=== PATIENT | female | born 1970 | race Caucasian/White ===

== ENCOUNTER 2018-08-19 10:38 | Emergency (ER) | payer OTHER ==
[2018-08-19] MEDS ORDERED: Sodium Chloride 0.9% 10 ML Syringe FLUSH PRN (11:04)
--- NOTE | 2018-08-19 11:04 | EDM.PDOC ---
ED HPI GENERAL MEDICAL PROBLEM - General Chief Complaint: General Stated Complaint: fatigue, poor intake, bodyaches Time Seen by Provider: 08/19/18 10:50 Source of Information: Reports: Patient. Denies: Old Records (No [facility] records available) History Limitations: Reports: No Limitations - History of Present Illness INITIAL COMMENTS - FREE TEXT/NARRATIVE: The patient was brought to the emergency room via private automobile by her cousin for evaluation of a one-week history of progressive possible fever, chills, fatigue, and anorexia with possible influenza A exposure from her cousin 's daughter prior to onset of the above symptoms. The patient did receive her influenza booster this season with no history of other known exposure to infection, including strep, mononucleosis, etc.. Her symptoms today are similar to an influenza infection about 8 years ago. She has not measured her temperature to this point and has not taken any medications for her above symptoms, including recent antipyretic medications during the last 4-6 hours. No recent history of abdominal pain, heartburn, emesis, diarrhea, melena, gross hematochezia, or any food intolerance, including fatty foods, etc., including a normal bowel movement earlier this morning. The patient does complain of some nonspecific nausea. She has had about 2 bowel movements on a daily basis during the last few days with increasing symptoms during the last 4 days. She has a one -year history of a possible left upper quadrant abdominal abscess with recurrence about 2 weeks ago and purulent drainage about one week ago when she squeezed this lesion. She denies any gross hematuria, colic, or other UTI symptoms. She has had a somewhat yellowish productive cough and possible occasional hemoptysis during the last few days with no history of dyspnea, wheezing, etc.. She also complains of bilateral frontal headaches and nonspecific nasal drainage. The patient denies any chest pain/pressure, heart flutter, dizziness, orthostasis, orthopnea, diaphoresis, paresthesias, recent decreased exercise tolerance, or any other anginal-type symptoms. Onset: Gradual, Other Duration: Week(s):, Constant, Getting Worse Location: Reports: Head, Abdomen, Generalized Quality: Reports: Ache, Same as Previous Episode Severity: Moderate Improves with: Reports: None Worsens with: Reports: None Context: Reports: Sick Contact (As above). Denies: Trauma Associated Symptoms: Reports: Cough, cough w sputum, Fever/Chills, Headaches, Loss of Appetite, Nausea/Vomiting (No emesis), Rash (Abscess as above), Weakness (Generalized fatigue). Denies: Confusion, Chest Pain, Diaphoresis, Malaise, Seizure, Shortness of Breath, Syncope Treatments POWER OPERATOR: Reports: Other (see below) (None) Headache Pain Score (Numeric/FACES): 5 Left Epigastric Pain Score (Numeric/FACES): 8 Generalized Pain Score (Numeric/FACES): 4 - Related Data Allergies Allergy/AdvReac Type Severity Reaction Status Date / Time No Known Allergies Allergy Verified 08/19/18 10:40 Home Meds: Home Meds Amoxicillin/Potassium Clav [Augmentin 875-125 Tablet] 1 each PO BIDMEALS #20 tablet 08/19/18 [Rx] Past Medical History HEENT History: Reports: Allergic Rhinitis. Denies: Cataract, Glaucoma, Hard of Hearing, Impaired Vision, Macular Degeneration, Otitis Media, Retinal Detachment Cardiovascular History: Reports: Hypertension, Other (See Below). Denies: Afib , Aneurysm, Arrhythmia, Blood Clots/VTE/DVT, CAD, Heart Failure, Heart Murmur, High Cholesterol, AK, PTCA, PVD, Syncope Other Cardiovascular History: Hypertension not currently being treated. Patient does not know her cholesterol status. Varicose veins. Respiratory History: Reports: Asthma, Intubation, Previous, Other (See Below). Denies: Bronchitis, Recurrent, COPD, Intubation, Difficult, PE, Pneumonia, Recurrent, Pneumothorax, Sleep Apnea, TB Other Respiratory History: Exercise-induced asthma. Gastrointestinal History: Reports: Cholelithiasis, Chronic Constipation, Chronic Diarrhea, Colon Polyp, Gastritis, GERD, Irritable Bowel Syndrome, PUD, Other (See Below). Denies: Bowel Obstruction, Celiac Disease, Diverticulosis, Fecal Incontinence, GI Bleed, Hepatitis, Hiatal Hernia, Inflammatory Bowel Disease, Jaundice, Pancreatitis Genitourinary History: Reports: Renal Calculus, Urinary Incontinence, Other ( See Below). Denies: Acute Renal Failure, Chronic Renal Insuffiency, Retention, Urinary, STD, UTI, Recurrent Other Genitourinary History: Recurrent urolithiasis mostly on the right side with spontaneous passage initially in the . Bladder prolapse with recurrent UTIs and unsuccessful surgery as below. KST OPERATOR History: Reports: Endometriosis, , Spontaneous . Denies : Dysfunctional Uterine Bleeding, Fibroids, Polycystic Ovaries : 3 Para: 2 LMP (Approximate): Other (See Below) Other KST OPERATOR History: Surgical menopause as below secondary to endometriosis. Elective SAB. Musculoskeletal History: Reports: Arthritis, Back Pain, Chronic, Neck Pain, Chronic, Osteoarthritis. Denies: Fracture, Gout, RA, SLE Neurological History: Reports: Concussion, Headaches, Chronic, Head Trauma, Migraines, Neuropathy, Peripheral, Other (See Below). Denies: Cerebral Aneurysms, CVA, MS, Parkinson's, Seizure, TIA, Vertigo Other Neuro History: Concussion at age 3. Psychiatric History: Reports: Anxiety, Depression. Denies: Abuse, Victim of, ADD, ADHD, Addiction, Psych Hospitalization(s), PTSD, Suicide Attempt, Suicidal Ideation Endocrine/Metabolic History: Reports: None. Denies: Diabetes, Gestational, Diabetes, Type I, Diabetes, Type II, Diabetes Mellitus, Type 3c, Hypothyroidism , IDDM, Obesity/BMI 30+ Hematologic History: Reports: None. Denies: Anemia, Blood Transfusion(s), Iron Deficiency Immunologic History: Reports: None. Denies: AIDS, HIV, SLE Oncologic (Cancer) History: Reports: Cervix, Other (See Below). Denies: Basal Cell Carcinoma, Breast, Colon, Hodgkin's Lymphoma, Leukemia, Lymphoma, Malignant Melanoma, Non-Hodgkin's Lymphoma, Ovarian, Squamous Cell Carcinoma Other Oncologic History: Pre-cancerous cervical lesion in 2009 with surgery as below. Dermatologic History: Reports: None. Denies: Eczema, Psoriasis - Infectious Disease History Infectious Disease History: Reports: Chicken Pox, Influenza. Denies: C- Difficile, Measles, Meningitis, Mononucleosis, MRSA, Mumps, Pertussis (Whooping Cough), Rheumatic Fever, Rubella, Scarlet Fever, Shingles, TB, VRE - Past Surgical History Head Surgeries/Procedures: Reports: None HEENT Surgical History: Reports: None. Denies: Adenoidectomy, Cataract Surgery , Eye Surgery, Laser Surgery, LASIK, Myringotomy w Tube(s), Naso-Sinus Surgery, Oral Surgery, Tonsillectomy Cardiovascular Surgical History: Reports: None. Denies: Varicose Respiratory Surgical History: Reports: None. Denies: Thoracentesis GI Surgical History: Reports: Cholecystectomy, Colonoscopy, EGD, Other (See Below). Denies: Appendectomy, Hernia, Abdominal, Hernia, Inguinal, Hernia Repair/Other, Polypectomy Other GI Surgeries/Procedures: EGD in about 1994. Initial colonoscopy in 1985 with last colonoscopy in 1994. Female Surgical History: Reports: D&C, Dilitation & Evacuation, Hysterectomy , LEEP, Other (See Below). Denies: Breast Biopsy, Section, Salpingo- Oophorectomy, Tubal Ligation Other Female Surgeries/Procedures: Hysterectomy in 2002 secondary to endometriosis. LEEP procedure with concomitant bladder suspension in 2009. D&C for elective SAB in 2000. Endocrine Surgical History: Reports: None. Denies: Thyroid Biopsy Neurological Surgical History: Reports: None. Denies: C-Spine, Discectomy, Laminectomy, Lumbar Spine, Sacral Spine, Spinal Fusion, Thoracic Spine, Vertebroplasty Musculoskeletal Surgical History: Reports: None. Denies: Arthroscopic Knee, Arthroscopic Procedure, Carpal Tunnel, Ganglion Cyst, ORIF, Shoulder Surgery Oncologic Surgical History: Reports: None. Denies: Biopsy of Breast Dermatological Surgical History: Reports: None Social & Family History - Tobacco Use Smoking Status *Q: Former Smoker Tobacco Use Within Last Twelve Months: No Years of Tobacco use: 26 Packs/Tins Daily: 1 Packs/Tins Daily Comment: Smoked between ages 12 and 38. Used Tobacco, but Quit: No Smoking Cessation Information Provided To Patient: No Second Hand Smoke Exposure: No Second Hand Smoke Education Provided: No - Caffeine Use Caffeine Use: Reports: Coffee (2 Cups per day), Energy Drinks (2 times per week) . Denies: Soda, Tea - Alcohol Use Alcohol Use History: No Days Per Week of Alcohol Use: 0 Number of Drinks Per Day: 2 Number of Drinks Per Day Comment: DWI in 2003. No previous history of alcohol abuse or treatment. Usually beer every couple of months. 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 ED EXAM, GENERAL - Physical Exam Exam: See Below Exam Limited By: No Limitations General Appearance: Alert, WD/WN, No Apparent Distress, Anxious (Mild) Eye Exam: Bilateral Eye: EOMI, Normal Inspection (No nystagmus), PERRL Ears: Normal External Exam, Normal Canal, Hearing Grossly Normal, Normal TMs Nose: Normal Mucosa, No Blood, Clear Rhinorrhea (Mild bilateral). No: Nasal Deformity, Nasal Swelling, Nasal Flaring Throat/Mouth: Normal Lips, Normal Teeth, Normal Gums, Normal Voice, No Airway Compromise, Other (1 cm in diameter area of +1 erythema superior to the mid left upper lip with no blister formation, lymphangitis, etc.). No: Normal Oropharynx (+1 erythema in the posterior pharynx and tonsils with no pinpoint white exudates or peritonsillar abscess), Dysphagia, Inflammation, Perioral Cyanosis Head: Atraumatic, Normocephalic. No: Facial Swelling, Facial Tenderness, Sinus Tenderness Neck: Normal Inspection, Supple, Non-Tender, Full Range of Motion. No: Carotid Bruit, Lymphadenopathy (L), Lymphadenopathy (R), Thyromegaly Respiratory/Chest: No Respiratory Distress, Lungs Clear, Normal Breath Sounds, No Accessory Muscle Use, Chest Non-Tender. No: Pleural Rub, Retractions Cardiovascular: Normal Peripheral Pulses, Regular Rate, Rhythm, No Edema, No Gallop, No JVD, No Murmur, No Rub. No: Tachycardia (Resolved at time of exam), Gallop/S3, Gallop/S4, Friction Rub Peripheral Pulses: 2+: Radial (L), Radial (R), Dorsalis Pedis (L), Dorsalis Pedis (R) GI/Abdominal: Normal Bowel Sounds, Soft, No Organomegaly, No Distention, No Abnormal Bruit, Tender (Mild to moderate palpation pain over the 4 cm left upper quadrant abdominal mass with no acute drainage at this time and only minimal trace erythema. No lymphangitis, etc.), Mass (As above). No: No Mass ( As below), Distended, Guarding, Rigid, Rebound (Female) Exam: Deferred Rectal (Female) Exam: Deferred Back Exam: Normal Inspection, Full Range of Motion. No: CVA Tenderness (L), CVA Tenderness (R), Muscle Spasm Extremities: Normal Range of Motion, Non-Tender, No Pedal Edema, Normal Capillary Refill, Other (4 centimeter in diameter mild ecchymosis over the lateral proximal aspect of the right radius with no known recent injury, deformity, significant tenderness, etc.). No: Bartolome's Sign Neurological: Alert, Oriented, CN II-XII Intact, Normal Cognition, Normal Gait, Normal Reflexes (Negative Babinski's. Negative meningeal signs.), No Motor/ Sensory Deficits Psychiatric: Anxious (Mild), Depressed Mood (Borderline) Skin Exam: Ecchymosis (As above), Rash (As above), Wound/Incision (As above) ED I&D PROCEDURES - I&D Site: Abdomenleft upper quadrant Skin prep: Chlorhexidine (Hibiciens) Local anesthesia - Lidocaine (Xylocaine): 1% Plain Local Anesthetic Volume: 5cc Area Incised With: 11 Blade Drainage: Purulent (Mild), Small Amount, Other (Mild to moderate sebaceous discharge with large abscess capsule noted) Probed to Break Up Loculations: Yes Packed With: None Sterile Dressinx4(s) Complications: No Progress/Comments: Wound specimen collected for culture and sensitivity Course - Vital Signs Last Recorded V/S: Last Vital Signs Temp 36.7 C 08/19/18 11:15 Pulse 67 08/19/18 14:30 Resp 16 08/19/18 14:00 BP 128/76 08/19/18 14:30 Pulse Ox 99 08/19/18 14:00 Vital Signs - 24 hr 08/19/18 08/19/18 08/19/18 10:40 10:54 11:15 Temperature [ 37.1 C 36.7 C Oral] Pulse, 104 H 76 81 Peripheral [ Left Pulse Oximetry] Respiratory 20 14 16 Rate Blood Pressure 140/91 H 148/97 H 140/91 H [Right Upper Arm] O2 Sat by Pulse 99 99 100 Oximetry 08/19/18 08/19/18 08/19/18 11:25 12:15 12:45 Temperature [ Oral] Pulse, 63 69 78 Peripheral [ Left Pulse Oximetry] Respiratory 16 16 16 Rate Blood Pressure 133/94 H 155/88 H 140/89 [Right Upper Arm] O2 Sat by Pulse 99 99 99 Oximetry 08/19/18 08/19/18 14:00 14:30 Temperature [ Oral] Pulse, 66 67 Peripheral [ Left Pulse Oximetry] Respiratory 16 Rate Blood Pressure 137/78 128/76 [Right Upper Arm] O2 Sat by Pulse 99 Oximetry - Orders/Labs/Meds Orders: Active Orders 24 hr Category Date Time Status Peripheral IV Care [RC] . DIRECTED Care 08/19/18 11:04 Active Nothing Per Oral Diet [DIET] Diet 08/19/18 Breakfast Active Abdomen Series w Chest 1V [CR] Stat Exams 08/19/18 11:04 Taken CULTURE BLOOD [BC] Stat Lab 08/19/18 11:15 Received CULTURE BLOOD [BC] Stat Lab 08/19/18 11:20 Received CULTURE STREP A CONFIRMATION [RM] Stat Lab 08/19/18 11:10 Results CULTURE WOUND + SMEAR [RM] Stat Lab 08/19/18 13:25 Results OCCULT BLOOD DIAGNOSTIC [OP] Stat Lab 08/19/18 11:04 Ordered STREP SCRN A RAPID W CULT CONF [RM] Stat Lab 08/19/18 11:10 Results Sodium Chloride 0.9% [Saline Flush] Med 08/19/18 11:04 Active 10 ml FLUSH ASDIRECTED PRN Blood Culture x2 Reflex Set [OM.PC] Urgent Oth 08/19/18 11:04 Ordered Obtain Past Medical Record [OM.PC] Urgent Oth 08/19/18 11:04 Active Peripheral IV Insertion Adult [OM.PC] Stat Oth 08/19/18 11:04 Ordered Resuscitation Status Stat Resus Stat 08/19/18 11:04 Ordered Medication Orders Sodium Chloride (Saline Flush) 10 ml FLUSH ASDIRECTED PRN PRN Reason: Keep Vein Open Labs: Laboratory Tests 08/19/18 08/19/18 08/19/18 Range/Units 11:15 11:15 11:15 WBC 5.9 (4.0-10.2) K/uL RBC 5.07 (3.77-5.09) M/uL Hgb 15.7 H (11.7-15.5) g/dL Hct 45.8 (34.0-46.0) % MCV 90.3 (84.0-98.0) fL MCH 31.0 (28.2-33.3) pg MCHC 34.3 (31.7-36.0) g/dL RDW 13.3 (11.2-14.1) % Plt Count 268 (150-350) K/uL Neut % (Auto) 71.9 (45.0-80.0) % Lymph % (Auto) 16.7 (10.0-50.0) % [place] % (Auto) 10.2 (2.0-14.0) % Eos % (Auto) 0.9 (0.0-5.0) % Baso % (Auto) 0.3 (0.0-2.0) % Neut # (Auto) 4.22 (1.40-7.00) K/uL Lymph # (Auto) 0.98 (0.50-3.50) K/uL [place] # (Auto) 0.60 (0.00-1.00) K/uL Eos # (Auto) 0.05 (0.00-0.50) K/uL Baso # (Auto) 0.02 (0.00-0.20) K/uL PT 10.5 (9.5-12.0) SEC INR 1.0 APTT 27.5 (21.0-31.3) SEC Sodium (136-145) mmol/L Potassium (3.5-5.1) mmol/L Chloride (98-107) mmol/L Carbon Dioxide (21.0-32.0) mmol/L BUN (7-18) mg/dL Creatinine (0.51-1.17) mg/dL Est Cr Clr Drug Dosing mL/min Estimated GFR (MDRD) mL/min Glucose (74-106) mg/dL Lactic Acid (0.4-2.0) mmol/L Uric Acid (2.6-7.2) mg/dL Calcium (8.5-10.1) mg/dL Magnesium (1.8-2.4) mg/dL Total Bilirubin (0.2-1.0) mg/dL AST (15-37) U/L ALT (12-78) U/L Alkaline Phosphatase (46-116) IU/L Total Protein (6.4-8.2) g/dL Albumin (3.4-5.0) g/dL Amylase 33 (25-115) U/L Lipase (73-393) U/L TSH, Ultra Sensitive (0.358-3.740) mIU/mL 08/19/18 08/19/18 08/19/18 Range/Units 11:15 11:15 11:15 WBC (4.0-10.2) K/uL RBC (3.77-5.09) M/uL Hgb (11.7-15.5) g/dL Hct (34.0-46.0) % MCV (84.0-98.0) fL MCH (28.2-33.3) pg MCHC (31.7-36.0) g/dL RDW (11.2-14.1) % Plt Count (150-350) K/uL Neut % (Auto) (45.0-80.0) % Lymph % (Auto) (10.0-50.0) % [place] % (Auto) (2.0-14.0) % Eos % (Auto) (0.0-5.0) % Baso % (Auto) (0.0-2.0) % Neut # (Auto) (1.40-7.00) K/uL Lymph # (Auto) (0.50-3.50) K/uL [place] # (Auto) (0.00-1.00) K/uL Eos # (Auto) (0.00-0.50) K/uL Baso # (Auto) (0.00-0.20) K/uL PT (9.5-12.0) SEC INR APTT (21.0-31.3) SEC Sodium 136 (136-145) mmol/L Potassium 4.1 (3.5-5.1) mmol/L Chloride 102 (98-107) mmol/L Carbon Dioxide 25.2 (21.0-32.0) mmol/L BUN 15 (7-18) mg/dL Creatinine 0.73 (0.51-1.17) mg/dL Est Cr Clr Drug Dosing 86.31 mL/min Estimated GFR (MDRD) > 60 mL/min Glucose 103 (74-106) mg/dL Lactic Acid 1.5 (0.4-2.0) mmol/L Uric Acid 4.5 (2.6-7.2) mg/dL Calcium 9.5 (8.5-10.1) mg/dL Magnesium 2.0 (1.8-2.4) mg/dL Total Bilirubin 0.4 (0.2-1.0) mg/dL AST 19 (15-37) U/L ALT 24 (12-78) U/L Alkaline Phosphatase 86 (46-116) IU/L Total Protein 7.9 (6.4-8.2) g/dL Albumin 3.8 (3.4-5.0) g/dL Amylase (25-115) U/L Lipase 114 (73-393) U/L TSH, Ultra Sensitive 1.566 (0.358-3.740) mIU/mL Blood Cultures 2 were collected Specimenfrom I&D site for Gram stain, culture, and sensitivity Microbiology 08/19/18 13:25 Gram Stain - Final Abdomen - Abscess 08/19/18 11:10 Group A Streptococcus Rapid Screen - Final Throat NEGATIVE STREP A SCREEN 08/19/18 11:10 Influenza Type A Antigen Screen - Final Nasal, Left NEGATIVE INFLUENZA A VIRUS AG Influenza Type B Antigen Screen - Final NEGATIVE INFLUENZA B VIRUS AG Note no significant WBCs or bacteria seen in Gram stain. Meds: Medications Generic Name Dose Route Start Last Admin Trade Name Freq PRN Reason Stop Dose Admin Sodium Chloride 10 ml 08/19/18 11:04 Saline Flush FLUSH ASDIRECTED PRN Keep Vein Open Discontinued Medications Generic Name Dose Route Start Last Admin Trade Name Freq PRN Reason Stop Dose Admin Famotidine 40 mg 08/19/18 11:04 08/19/18 11:21 Pepcid IVPUSH 08/19/18 11:05 40 mg ONETIME ONE Administration Lactated Ringer's 1,000 mls @ 999 mls/hr 08/19/18 11:04 08/19/18 11:45 Ringers, Lactated IV 08/19/18 12:04 999 mls/hr .BOLUS ONE Administration Lidocaine HCl 5 ml 08/19/18 11:13 08/19/18 13:00 Xylocaine-Mpf 1% INJECT 08/19/18 11:14 5 ml ONETIME ONE Administration Neomycin/Polymyxin/Bacitracin 1 each 08/19/18 13:23 08/19/18 14:03 Triple Antibiotic Oint TOP 08/19/18 13:24 1 each ONETIME ONE Administration Ondansetron HCl 4 mg 08/19/18 11:04 08/19/18 11:21 Zofran IVPUSH 08/19/18 11:05 4 mg ONETIME ONE Administration Pantoprazole Sodium 40 mg 08/19/18 11:04 08/19/18 11:21 Protonix Iv IVPUSH 08/19/18 11:05 40 mg ONETIME ONE Administration - Radiology Interpretation Free Text/Narrative:: Acute abdominal x-ray shows evidence of moderate pulmonary obstructive disease with no pulmonary infiltrates, cardiomegaly, CHF, or pneumothorax. Surgical clip noted in the right upper quadrant consistent with cholecystectomy. Cannot rule out possible right renal pelvic nephrolithiasis. Moderate stool with no fluid levels, ileus, obstruction, or free air. Departure - Departure Time of Disposition: 14:45 Disposition: Home, Self-Care 01 Condition: Good Clinical Impression: Cellulitis, Sebaceous cyst, Hypertension, Viral gastroenteritis, Mixed anxiety depressive disorder, Osteoarthritis - Discharge Information *PRESCRIPTION DRUG MONITORING PROGRAM REVIEWED*: Not Applicable *COPY OF PRESCRIPTION DRUG MONITORING REPORT IN PATIENT JAS: Not Applicable Prescriptions: Amoxicillin/Potassium Clav [Augmentin 875-125 Tablet] 1 each PO BIDMEALS #20 tablet Instructions: Viral Gastroenteritis, Adult, [id number], Epidermal Cyst, Easy- to-Read, Cellulitis, Adult, [id number] Referrals: PCP,Unknown [Ordering Only Provider] - Forms: ED Department Discharge, ED Return to Work/School Form Additional Instructions: 1. Follow-up at the [facility] in 3-4 days for reevaluation and recommended excision of your sebaceous cyst on your abdomen. 2. Tylenol 650 mg by mouth every 4 hours and/or OTC ibuprofen 2-3 tabs by mouth every 6 hours with food as directed./needed. You may stagger these medications for 48-72 hours only, which essentially means that you are receiving a pain medication about every 2 hours. 3. Antibacterial soap wash/soak with subsequent antibacterial dressing such as Neosporin, etc. as directed 2 times per day until the wound site completely heals. Keep the area clean and dry with activity restrictions as discussed. Never use hydroperoxide for wound care. 4. Work excuse- See Form 5. [place] diet including encouragement of oral fluids such as sports drinks, etc. for 24-48 hours as directed. Advance to regular diet as tolerated thereafter. 6. Immediately after this visit verify that your cellular telephone's voicemail has been activated and is empty. Also verify that your home telephone 's answering machine is operating properly and has space to receive messages. Note that it is sometimes necessary for us to be able to contact you at a later date to discuss your medical care. 7. Please remember that we are ALWAYS here for you and want to answer any questions you may have. Feel free to call the hospital any time and we call you back ARTHUR. - Problem List & Annotations (1) Cellulitis SNOMED Code(s): 029739463 Code(s): L03.90 - CELLULITIS, UNSPECIFIED Status: Acute Priority: High Current Visit: Yes Onset Date: ~08/19/18 Annotation/Comment:: Mild cellulitis from sebaceous cyst in the abdominal region. Wound specimen collected as above. Initiate Augmentin therapy. Work excuse provided. Wound care discussed. Qualifiers: Site of cellulitis: trunk Site of cellulitis of trunk: abdominal wall Qualified Code(s): L03.311 - Cellulitis of abdominal wall (2) Hypertension SNOMED Code(s): 29167441 Code(s): I10 - ESSENTIAL (PRIMARY) HYPERTENSION Status: Chronic Priority : Medium Current Visit: Yes Annotation/Comment:: Blood pressure somewhat elevated in the emergency room. No current medical therapy. Continue to observe closely by her new regular provider with the patient just moving to the area. Consider update of her yearly health exam in the near future, including lipid panel, etc. Qualifiers: Hypertension type: essential hypertension Qualified Code(s): I10 - Essential (primary) hypertension (3) Mixed anxiety depressive disorder SNOMED Code(s): 209253391 Code(s): F41.8 - OTHER SPECIFIED ANXIETY DISORDERS Status: Chronic Priority: Medium Current Visit: Yes Annotation/Comment:: Mild to moderate control based on today's exam. Continue to observe closely by her regular provider. (4) Sebaceous cyst SNOMED Code(s): 735130753 Code(s): L72.3 - SEBACEOUS CYST Status: Acute Priority: High Current Visit: Yes Onset Date: ~08/19/18 Annotation/Comment:: Secondary to current infection, recurrence and presence for more than one year excision is advisable. Excision will be conducted in 2 days by her new physician as per discharge instructions. Wound care and activity restrictions discussed (5) Viral gastroenteritis SNOMED Code(s): 094577055 Code(s): A08.4 - VIRAL INTESTINAL INFECTION, UNSPECIFIED Status: Acute Priority: High Current Visit: Yes Annotation/Comment:: Symptomatic relief as per discharge instructions. Wound excuse provided as above. The patient felt much better after IV fluids, etc. in the emergency room with no clinical evidence of significant dehydration. (6) Osteoarthritis SNOMED Code(s): 835297565 Code(s): M19.90 - UNSPECIFIED OSTEOARTHRITIS, UNSPECIFIED SITE Status: Chronic Current Visit: Yes Annotation/Comment:: Stable by history with no current medical therapy required. Qualifiers: Osteoarthritis location: multiple joints Osteoarthritis type: primary Qualified Code(s): M15.0 - Primary generalized (osteo)arthritis - Problem List Review Problem List Initiated/Reviewed/Updated: Yes - My Orders Last 24 Hours: My Active Orders 08/19/18 11:04 Peripheral IV Care [RC] . DIRECTED Abdomen Series w Chest 1V [CR] Stat OCCULT BLOOD DIAGNOSTIC [OP] Stat Sodium Chloride 0.9% [Saline Flush] 10 ml FLUSH ASDIRECTED PRN Blood Culture x2 Reflex Set [OM.PC] Urgent Obtain Past Medical Record [OM.PC] Urgent Peripheral IV Insertion Adult [OM.PC] Stat Resuscitation Status Stat 08/19/18 11:10 CULTURE STREP A CONFIRMATION [RM] Stat STREP SCRN A RAPID W CULT CONF [RM] Stat 08/19/18 11:15 CULTURE BLOOD [BC] Stat 08/19/18 11:20 CULTURE BLOOD [BC] Stat 08/19/18 13:25 CULTURE WOUND + SMEAR [RM] Stat 08/19/18 Breakfast Nothing Per Oral Diet [DIET] - Assessment/Plan Last 24 Hours: My Active Orders 08/19/18 11:04 Peripheral IV Care [RC] . DIRECTED Abdomen Series w Chest 1V [CR] Stat OCCULT BLOOD DIAGNOSTIC [OP] Stat Sodium Chloride 0.9% [Saline Flush] 10 ml FLUSH ASDIRECTED PRN Blood Culture x2 Reflex Set [OM.PC] Urgent Obtain Past Medical Record [OM.PC] Urgent Peripheral IV Insertion Adult [OM.PC] Stat Resuscitation Status Stat 08/19/18 11:10 CULTURE STREP A CONFIRMATION [RM] Stat STREP SCRN A RAPID W CULT CONF [RM] Stat 08/19/18 11:15 CULTURE BLOOD [BC] Stat 08/19/18 11:20 CULTURE BLOOD [BC] Stat 08/19/18 13:25 CULTURE WOUND + SMEAR [RM] Stat 08/19/18 Breakfast Nothing Per Oral Diet [DIET] Assessment:: As above Plan: As above. Extensive precautions were given to the patient, who is in agreement with the treatment plan. See Patient Instructions for further treatment and plan.
[2018-08-19] MEDS: Ondansetron 4 MG/2 ML SDV IVPUSH ONE (11:21)
[2018-08-19] MEDS: Famotidine 20 MG/2 ML SDV IVPUSH ONE (11:21)
[2018-08-19] MEDS: Pantoprazole 40 MG Vial IVPUSH ONE (11:21)
[2018-08-19] MEDS: Lactated Ringers 1,000 ML IV ONE (11:45)
[2018-08-19 11:51] LABS: CHLORIDE,CL 102 mmol/L (98-107); SODIUM,NA 136 mmol/L (136-145)
[2018-08-19] MEDS: Bacitracin/Neomycin/Polymyxin B Oint 0.9 GM U/D Packet TOP ONE (14:03)
== END 2018-08-19 14:45 | disposition home or self-care (01) ==
LOC: LL.ED 10:38
DX: L03.311 Cellulitis of abdominal wall (principal); L72.3 Sebaceous cyst; A08.4 Viral intestinal infection, unspecified; I10 Essential (primary) hypertension; F41.8 Other specified anxiety disorders; M19.90 Unspecified osteoarthritis, unspecified site; Z87.891 Personal history of nicotine dependence
CPT/HCPCS: 10060; 36415; 74022; 80053; 82150; 83605; 83690; 83735; 84443; 84550; 85025; 85610; 85730; 87040; 87070; 87081; 87205; 87430; 87804; 96361; 96374; 96375; 99284; C9113; J2001; J2405; J3490; J7120